=== PATIENT | male | born 1985 ===

== ENCOUNTER 2024-04-19 06:22 | Day surgery (SDC) | payer OTHER, SELFPAY ==
[2024-04-19] VITALS (11 sets, daily range): BP systolic 108–133; BP diastolic 59–97; BMI 36.2
[2024-04-19 13:40] LABS: Glucose - Point of Care 119 mg/dl (70-99)
[2024-04-19 16:27] LABS: Glucose - Point of Care 115 mg/dl (70-99)
[2024-04-19] MEDS: TYLENOL 650 MG PO (17:56)
== END 2024-04-19 18:26 | disposition home or self-care (01) ==
LOC: SDS 06:22
PROVIDERS: ATTENDING PHYSICIAN Surgery; PRIMARYCARE PHYSICIAN Internal Medicine
PROC: 0VTTXZZ Resection of Prepuce, External Approach (ICD-10-PCS; 2024-04-19)
DX: N47.1 Phimosis (principal)
CPT/HCPCS: 54161; 82962